=== PATIENT | female | born 2000 | race Caucasian/White ===

== ENCOUNTER 2021-08-15 15:09 | Emergency (ER) | payer OTHER ==
[2021-08-15 15:33] VITALS: BP 115/73; PULSE 91; TEMP 97.8; BMI 34.6
[2021-08-15] MEDS ORDERED: ACETAMINOPHEN 1000 MG/100 ML VIAL IVPB ONE (16:35)
[2021-08-15] MEDS ORDERED: FAMOTIDINE 20 MG/50 ML IVPB 20 MG/50 ML MG IVPB ONE ×2 (16:35→18:29)
[2021-08-15] MEDS ORDERED: SODIUM CHLORIDE 1,000 ML IV STA (16:35)
[2021-08-15] MEDS ORDERED: ONDANSETRON 4 MG/2 ML VIAL IVPUSH ONE (16:35)
[2021-08-15] MEDS ORDERED: ACETAMINOPHEN INJECTION 100 ML IVPB ONE (18:28)
[2021-08-15] MEDS ORDERED: ONDANSETRON 4 MG/2 ML VIAL ONE (18:29)
[2021-08-15 19:44] LABS: PH,URINE 7.5 (5.0-8.0); URINE APPEARANCE CLOUDY; URINE BILIRUBIN NEGATIVE (NEGATIVE); URINE COLOR YELLOW; URINE GLUCOSE (UA) NEGATIVE (NEGATIVE); URINE KETONE TRACE (NEGATIVE); URINE LEUK ESTERASE NEGATIVE (NEGATIVE); URINE NITRITE NEGATIVE (NEGATIVE); URINE PROTEIN NEGATIVE (NEGATIVE)
[2021-08-15 19:44] LABS: BASO % 0.7 % (0-2.0); HEMATOCRIT 40.6 % (32.4-45.2); HEMOGLOBIN 13.6 GM/dL (10.7-15.3); LYMPH % 42.5 % (8-40); MCH 29.4 pg (25.7-33.7); MCHC 33.6 g/dl (32.0-36.0); MEAN CELL VOLUME 87.8 fl (80-96); MEAN PLT VOLUME 10.3 fl (7.5-11.1); MONO % 8.9 % (3.8-10.2); NEUT % 40.9 % (42.8-82.8); PLATELET COUNT 297 10^3/uL (134-434); RBC 4.63 M/mm3 (3.60-5.2); WHITE BLOOD COUNT 6.4 K/mm3 (4.0-10.0)
[2021-08-15 19:47] LABS: HCG,QUALITATIVE URINE Negative
[2021-08-15 19:49] LABS: INR 1.05 (0.83-1.09); PROTHROMBIN TIME (PATIENT) 12.3 SEC (9.7-13.0)
[2021-08-15 19:51] LABS: ACTIVATED PTT 34.7 SECONDS (25.2-36.5)
[2021-08-15 20:02] LABS: BLOOD UREA NITROGEN 13.5 mg/dL (7-18); CALCIUM 9.2 mg/dL (8.5-10.1)
[2021-08-15 20:05] LABS: CREATININE 0.8 mg/dL (0.55-1.3); PHOSPHOROUS 3.5 mg/dL (2.5-4.9)
[2021-08-15 20:06] LABS: BILIRUBIN,TOTAL 0.6 mg/dL (0.2-1)
[2021-08-15 20:08] LABS: TOT PROT 8.3 g/dl (6.4-8.2)
[2021-08-15 20:15] LABS: MAGNESIUM 2.2 mg/dL (1.8-2.4)
== END 2021-08-15 20:44 | disposition home or self-care (01) ==
LOC: JER 15:09
PROC: 3E0333Z Introduction of Anti-inflammatory into Peripheral Vein, Percutaneous Approach (ICD-10-PCS; principal; 2021-08-15)
PROC: 3E033GC Introduction of Other Therapeutic Substance into Peripheral Vein, Percutaneous Approach (ICD-10-PCS; 2021-08-15)
PROC: 3E033GC Introduction of Other Therapeutic Substance into Peripheral Vein, Percutaneous Approach (ICD-10-PCS; 2021-08-15)
PROC: 3E0337Z Introduction of Electrolytic and Water Balance Substance into Peripheral Vein, Percutaneous Approach (ICD-10-PCS; 2021-08-15)
DX: K29.00 Acute gastritis without bleeding (principal)
CPT/HCPCS: 36415; 76705-TC; 80053; 81003; 83690; 83735; 84100; 84703; 85025; 85610; 85730; 86850; 86900; 86901; 93005; 93010; 96361; 96374; 96375; 99285-25; C9803; J0131; U0003; U0005

== ENCOUNTER 2022-11-10 16:39 | Emergency (ER) | payer OTHER ==
[2022-11-10 16:50] VITALS: BP 127/85; PULSE 85; RESP 20; TEMP 98.1; BMI 35.9
== END 2022-11-10 20:14 | disposition left against medical advice (07) ==
LOC: JER 16:39
DX: K62.5 Hemorrhage of anus and rectum (principal)
CPT/HCPCS: 99283-25

== ENCOUNTER 2023-05-13 13:05 | Emergency (ER) | payer OTHER ==
[2023-05-13 13:17] VITALS: BMI 34.6
[2023-05-13] MEDS ORDERED: KETOROLAC TROMETHAMINE 30 MG/1 ML VIAL IVPB ONE (13:40)
[2023-05-13] MEDS ORDERED: SODIUM CHLORIDE 0.9% 500 ML INFUS.BAG IV ONE (13:40)
[2023-05-13] MEDS ORDERED: KETOROLAC TROMETHAMINE 30 MG/1 ML VIAL ONE (14:12)
[2023-05-13 15:09] LABS: BASO % 0.8 % (0-2.0); HEMATOCRIT 41.1 % (32.4-45.2); HEMOGLOBIN 13.6 GM/dL (10.7-15.3); MCH 28.5 pg (25.7-33.7); MEAN CELL VOLUME 86.5 fl (80-96); MEAN PLT VOLUME 9.7 fl (7.5-11.1); MONO % 7.9 % (3.8-10.2); NEUT % 55.3 % (42.8-82.8); PLATELET COUNT 296 10^3/uL (134-434); RBC 4.75 M/mm3 (3.60-5.2); RDW 14.4 % (11.6-15.6); WHITE BLOOD COUNT 7.1 K/mm3 (4.0-10.0)
[2023-05-13 15:16] LABS: PH,URINE 7.5 (5.0-8.0); URINE APPEARANCE CLOUDY; URINE BILIRUBIN NEGATIVE (NEGATIVE); URINE COLOR YELLOW; URINE GLUCOSE (UA) NEGATIVE (NEGATIVE); URINE KETONE NEGATIVE (NEGATIVE); URINE LEUK ESTERASE NEGATIVE (NEGATIVE); URINE NITRITE NEGATIVE (NEGATIVE); URINE PROTEIN NEGATIVE (NEGATIVE)
[2023-05-13 15:19] LABS: HCG,QUALITATIVE URINE Negative
[2023-05-13 16:00] LABS: CALCIUM 9.4 mg/dL (8.5-10.1)
[2023-05-13 16:01] LABS: ALBUMIN 3.7 g/dl (3.4-5.0); BLOOD UREA NITROGEN 14.2 mg/dL (7-18)
[2023-05-13 16:04] LABS: CREATININE 0.7 mg/dL (0.55-1.3)
[2023-05-13 16:05] LABS: BILIRUBIN,TOTAL 0.5 mg/dL (0.2-1)
[2023-05-13 16:06] LABS: TOT PROT 7.8 g/dl (6.4-8.2)
[2023-05-13] MEDS ORDERED: ACETAMINOPHEN 1000 MG/100 ML BAG IVPB ONE (17:37)
[2023-05-13] MEDS ORDERED: ACETAMINOPHEN INJECTION 100 ML IVPB ONE (17:41)
[2023-05-13 18:30] VITALS: BP 102/65; PULSE 64; RESP 16; TEMP 98.6
== END 2023-05-13 18:56 | disposition home or self-care (01) ==
LOC: JER 13:05
PROC: 3E0333Z Introduction of Anti-inflammatory into Peripheral Vein, Percutaneous Approach (ICD-10-PCS; principal; 2023-05-13)
PROC: 3E033NZ Introduction of Analgesics, Hypnotics, Sedatives into Peripheral Vein, Percutaneous Approach (ICD-10-PCS; 2023-05-13)
DX: M54.9 Dorsalgia, unspecified (principal); R10.31 Right lower quadrant pain; R11.0 Nausea; R19.7 Diarrhea, unspecified
CPT/HCPCS: 36415; 71046-TC-FY; 74176-TC; 80053; 81003; 84703; 85025; 87086; 99285-25

== ENCOUNTER 2024-09-23 12:02 | Emergency (ER) | payer OTHER ==
[2024-09-23 12:10] VITALS: BP 115/75; PULSE 73; RESP 18; TEMP 98.4; BMI 35.7
[2024-09-23] MEDS ORDERED: ACETAMINOPHEN INJECTION 100 ML ONE (12:28)
[2024-09-23] MEDS ORDERED: ONDANSETRON 4 MG/2 ML VIAL ONE (12:28)
[2024-09-23] MEDS: ONDANSETRON 4 MG/2 ML VIAL IVPUSH ONE (12:48)
[2024-09-23] MEDS: ACETAMINOPHEN 1000 MG/100 ML BAG IVPB ONE (12:48)
[2024-09-23 13:14] LABS: HEMATOCRIT 40.3 % (32.4-45.2); HEMOGLOBIN 12.9 G/dL (10.7-15.3); MCH 28.4 pg (25.7-33.7); MCHC 32.1 g/dl (32.0-36.0); MEAN CELL VOLUME 88.5 fl (80-96); MEAN PLT VOLUME 9.9 fl (7.5-11.1); PLATELET COUNT 300.8 10^3/uL (134-434); RBC 4.55 10^6/uL (3.60-5.2); WHITE BLOOD COUNT 5.8 10^3/uL (4.0-10.8)
[2024-09-23 13:26] LABS: ALBUMIN 4.3 g/dl (3.4-5.0); ALK PHOS 77 U/L (45-117); ANION GAP 2 mmol/L (4-13); BILIRUBIN,TOTAL 0.4 mg/dl (0.2-1); CALCIUM 9.7 mg/dl (8.5-10.1); CHLORIDE 105 mmol/L (98-107); CO2 33 mmol/L (21-32); CREATININE 0.7 mg/dl (0.6-1.3); GLUCOSE,RANDOM 86 mg/dl (74-106); SGOT/AST 15 U/L (15-37); SGPT/ALT 18 U/L (7-52); SODIUM 140 mmol/L (136-145)
[2024-09-23 13:54] LABS: HCG,QUALITATIVE URINE Negative
[2024-09-23 14:04] LABS: PLATELET ESTIMATE ADEQUATE
[2024-09-23 15:25] LABS: HIV INTERPRETATION NEGATIVE (NEGATIVE)
== END 2024-09-23 15:54 | disposition home or self-care (01) ==
LOC: FER 12:02
PROC: 3E033NZ Introduction of Analgesics, Hypnotics, Sedatives into Peripheral Vein, Percutaneous Approach (ICD-10-PCS; principal; 2024-09-23)
PROC: 3E033GC Introduction of Other Therapeutic Substance into Peripheral Vein, Percutaneous Approach (ICD-10-PCS; 2024-09-23)
DX: R93.2 Abnormal findings on diagnostic imaging of liver and biliary tract (principal); R11.0 Nausea; R10.9 Unspecified abdominal pain
CPT/HCPCS: 36415; 76700-TC; 76830-TC; 80053; 81003; 83690; 84703; 85027; 86140; 86780; 86803; 87070; 87077; 87086; 87205; 87389; 87491; 87591; 99284-25; J0131